=== PATIENT | female | born 1940 | race Caucasian/White ===

== ENCOUNTER 2018-05-30 13:56 | Emergency (ER) | payer MEDICARE, OTHER ==
[2018-05-30 14:40] VITALS: O2SAT 98
[2018-05-30] MEDS ORDERED: Adacel Vial IM ONE ×2 (14:55→15:26)
--- NOTE | 2018-05-30 14:55 | ERPHSYRPT ---
- History of Present Illness Time Seen by Provider: 05/30/18 14:50 Source: patient, family Exam Limitations: no limitations Patient Subjective Stated Complaint: missed a tep and fell at the library. hit left side of head. Lac to head. no LOC Triage Nursing Assessment: alert and oriented after missing a step and hitting left siide of head. Lac approx 3 CM to left temporal. no LOC. neuro intact. ROMARIO no active bleeding Physician History: The patient is a 78-year-old female with her who comes in complaining that she missed a step while at a local library, causing her to hit the left side of her head on the door jam. This caused a laceration to her left forehead and bruising to her left cheek. She does not think she lost consciousness. She is unsure of her last tetanus vaccination but it may have been within the last 10 years. She denies neck pain. She denies visual problems. She denies numbness or tingling. Her past medical history significant for A. fib. She is on a blood thinner. Occurred: just prior to arrival Reason for Fall: tripped, fell from height Injuries/Pain Location: head, face Loss of Consciousness: no loss of consciousness Quality: aching, sharpness Severity of Pain-Max: moderate Severity of Pain-Current: moderate Modifying Factors: Improves With: nothing Associated Symptoms (Fall): denies symptoms, No dizziness, No extremity injury, No neck pain Allergies/Adverse Reactions: No Known Drug Allergies Allergy (Unverified 12/15/14 10:31) Home Medications: Sotalol HCl 80 mg [Betapace 80 MG] 80 mg PO BID 08/11/13 [History] Amlodipine Besylate 5 mg [Norvasc 5 mg] 5 mg PO DAILY 12/15/14 [History] Apixaban [Eliquis 5 mg Tablet] 5 mg PO BID 12/15/14 [History] Hx Tetanus, Diphtheria Vaccination/Date Given: No Hx Influenza Vaccination/Date Given: No Hx Pneumococcal Vaccination/Date Given: No Immunizations Up to Date: Yes - Review of Systems Constitutional: No Fever, No Chills Eyes: No Symptoms Ears, Nose, & Throat: No Symptoms Respiratory: No Cough, No Dyspnea Cardiac: No Chest Pain, No Edema, No Syncope Abdominal/Gastrointestinal: No Abdominal Pain, No Nausea, No Vomiting, No Diarrhea Genitourinary Symptoms: No Dysuria Musculoskeletal: Fall, Injury Skin: Other (laceration) Neurological: No Dizziness, No Focal Weakness, No Sensory Changes Psychological: No Symptoms Endocrine: No Symptoms Hematologic/Lymphatic: No Symptoms - Past Medical History Pertinent Past Medical History: Yes Neurological History: Peripheral Neuropathy ENT History: Cataracts Cardiac History: Arrhythmia, Hypertension Respiratory History: No Pertinent History Endocrine Medical History: No Pertinent History Musculoskeletal History: Osteoarthritis GI Medical History: Polyps History: No Pertinent History Psycho-Social History: No Pertinent History Female Reproductive Disorders: No Pertinent History Other Medical History: BILATERAL FOOT NUMBNESS, CARDIOVERSION X 3 - Past Surgical History Past Surgical History: Yes Neuro Surgical History: No Pertinent History Cardiac: No Pertinent History Respiratory: No Pertinent History Gastrointestinal: No Pertinent History Genitourinary: No Pertinent History Musculoskeletal: Orthopedic Surgery Female Surgical History: No Pertinent History Other Surgical History: BREAST BIOPSY; KNEE SCOPE; T&A - Social History Smoking Status: Never smoker Exposure to second hand smoke: No Drug Use: none Patient Lives Alone: No - Female History Hx Now: No - Nursing Vital Signs Nursing Vital Signs: Initial Vital Signs Temperature 98 F 05/30/18 14:23 Pulse Rate 99 H 05/30/18 14:23 Respiratory Rate 18 05/30/18 14:23 Blood Pressure 150/90 05/30/18 14:23 O2 Sat by Pulse Oximetry 98 05/30/18 14:23 Pain Scale Pain Intensity 4 - Cuco Coma Score Best Eye Response (Cuco): (4) open spontaneously Best Verbal Response (Tonica): (5) oriented Best Motor Response (Cuco): (6) obeys commands Tonica Total: 15 - Physical Exam General Appearance: no apparent distress, alert Head Injury: lacerations (3 x 1 cm contused laceration to left forehead; 0.5 cm lac to inferior left ear lobe), No contusions (left cheek) Eye Exam: PERRL/EOMI ENT Exam: airway nml Neck Exam: normal inspection, No tenderness Respiratory/Chest Exam: normal breath sounds, No chest tenderness, No respiratory distress Cardiovascular Exam: normal heart sounds, irregular Gastrointestinal Exam: soft, No tenderness, No distention, No guarding, No ecchymosis Rectal Exam: not done Back Exam: normal inspection, No vertebral tenderness Extremity Exam: normal inspection, normal range of motion, pelvis stable, No deformities Neurologic Exam: alert, oriented x 3, cooperative, sensation nml, No motor deficits Skin Exam: ecchymosis (leck cheek) SpO2 Interpretation: normal SpO2: 98 O2 Delivery: Room Air Procedures - Laceration/Wound Repair Left Upper Anterior Head Wound Location: Left, forehead Wound Length (cm): 3 Wound's Depth, Shape: linear, contused tissue Wound Explored: clean Irrigated: Yes Hibiclens Prep: Yes Anesthesia: 1% Lidocaine Volume Anesthetic (ccs): 10 Wound Repaired With: sutures Suture Size/Type: 4-0, ethilon Number of Sutures: 5 Layer Closure?: No Sterile Dressing Applied?: Yes Left Lower Ear Wound Location: Left, head (ear) Wound Length (cm): 0.5 Wound's Depth, Shape: superficial, linear Wound Explored: clean Irrigated: No Hibiclens Prep: Yes Wound Repaired With: Dermabond - CT Exams Head CT Interpretation: Negative, Tele-radiologist Report (per Dr Garay), No/ Intracranial Hemorrhag Maxillofacial Bones CT Interpretation: Negative, Tele-radiologist Report (per Dr Garay), No Fracture Cervical Spine CT Interpretation: Negative, Tele-radiologist Report (per Dr Garay), No Fracture, No Subluxation, Other (stable right parapharyngeal soft tissue mass (benign)) Ordered Tests: Active Orders 24 hr Category Date Time Status Wound Care STAT Care 05/30/18 15:36 Active CERVICAL SPINE WO CONTRAST [CT] Stat Exams 05/30/18 14:56 Completed FACIAL BONES WO CONTRAST [CT] Stat Exams 05/30/18 14:56 Completed HEAD WITHOUT CONTRAST [CT] Stat Exams 05/30/18 14:56 Completed Medication Summary Discontinued Medications Generic Name Dose Route Start Last Admin Trade Name Freq PRN Reason Stop Dose Admin Diphtheria/Tetanus/Acell Pertussis 0.5 ml 05/30/18 14:55 05/30/18 15:27 Adacel Vial IM 05/30/18 14:56 0.5 ml .ONCE ONE Administration Diphtheria/Tetanus/Acell Pertussis Confirm 05/30/18 15:26 Adacel Vial Administered 05/30/18 15:27 Dose 0.5 ml IM .STK-MED ONE Lidocaine HCl 10 ml 05/30/18 15:36 05/30/18 15:48 Xylocaine 1% Hcl 20 Ml Mdv IJ 05/30/18 15:37 10 ml STAT ONE Administration Lidocaine HCl Confirm 05/30/18 15:37 Xylocaine 1% Hcl 20 Ml Mdv Administered 05/30/18 15:38 Dose 10 ml .ROUTE .STK-MED ONE - Progress Progress: improved Progress Note: 05/30/18 14:57 pt declines pain meds. Counseled pt/family regarding: diagnosis, need for follow-up, rad results - Departure Time of Disposition: 16:19 Departure Disposition: Home Clinical Impression: Forehead laceration, Laceration of left earlobe Condition: Stable Critical Care Time: No Additional Instructions: You struck your head during a fall today. You had a laceration to your left forehead closed with 5 sutures. You had a small laceration to your left earlobe closed with Dermabond glue. Take Tylenol 1000 mg every 6-8 hours as needed for discomfort. You may also use ice applied to any bruised area for comfort. Have the sutures removed in about 12 days by your primary medical doctor. Take Augmentin 875 one tablet 2 times a day for 10 days. Prescriptions: Amoxicillin/Potassium Clav [Augmentin 875-125 Tablet] 1 each PO BID #20 tablet
--- NOTE | 2018-05-30 15:21 | XRAY ---
Indication: Pain following fall. Multiple contiguous axial images obtained through the head without contrast. Comparison: December 15, 2014. Again normal appearing brain parenchyma, ventricles, and bony calvarium. Visualized paranasal sinuses and mastoid air cells are clear. Impression: Normal CT head without contrast exam. CT DI 48.76
--- NOTE | 2018-05-30 15:25 | XRAY ---
Indication: Pain following fall. Multiple contiguous axial images obtained through the facial bones. Sagittal and coronal reformatted images obtained. Comparison: December 15, 2014. Again there are bilateral dental amalgams producing beam artifact limiting these levels. No acute fracture or suspicious bony lesions. Orbits including roof, yuan, and floors are intact. Stable inferior left maxilla sinus polyp/retention cyst.. Remaining paranasal sinuses and nasal passages are clear. Stable mild nasal septal deviation to the left. Remaining visualized noncontrasted soft tissues unremarkable. CT head and CT cervical spine reported separately. Impression: 1. Again negative acute facial bone fracture. 2. Incidental left maxillary sinus polyp/retention cyst and nasal septal deviation.
[2018-05-30] MEDS ORDERED: XYLOCAINE 1% HCL 20 ML MDV IJ ONE (15:36)
--- NOTE | 2018-05-30 15:36 | XRAY ---
Indication: Pain following fall. Multiple contiguous axial images obtained through the cervical spine. Sagittal and coronal reformatted images obtained. Comparison: December 15, 2014. Axial images again negative for acute fracture, suspicious bony lesions, or spinal canal stenosis. Stable mild atlantoaxial degenerative arthropathy and multilevel degenerative facet hypertrophy. Sagittal and coronal reformatted images demonstrates normal alignment with stable minimal C6-C7 disc space narrowing. No acute compression fracture, subluxation, or jumped facet. Normal appearing craniocervical junction. Visualized noncontrasted soft tissues again demonstrates mild carotid calcifications, left greater than right. Also stable 2 x 3 x 3.8 cm well-circumscribed soft tissue mass in the right parapharyngeal space. Lung apices clear. CT head and CT facial bones reported separately Impression: 1. Again negative for acute fracture/subluxation. 2. Stable multilevel degenerative changes. 3. 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 CT DI 36.30
[2018-05-30] MEDS ORDERED: XYLOCAINE 1% HCL 20 ML MDV ONE (15:37)
[2018-05-30 16:10] VITALS: BP 156/105; PULSE 114
[2018-05-30] MEDS ORDERED: BACIGUENT PACKET ONE (16:30)
[2018-05-30] MEDS ORDERED: BACIGUENT PACKET TP ONE (16:43)
== END 2018-05-30 16:38 | disposition home or self-care (01) ==
LOC: ED 13:56
DX: S01.81XA Laceration without foreign body of other part of head, initial encounter (principal); S01.312A Laceration without foreign body of left ear, initial encounter; S00.83XA Contusion of other part of head, initial encounter; W17.89XA Other fall from one level to another, initial encounter; Y93.01 Activity, walking, marching and hiking; Y92.241 Library as the place of occurrence of the external cause; I48.91 Unspecified atrial fibrillation; I10 Essential (primary) hypertension; G62.9 Polyneuropathy, unspecified; M19.90 Unspecified osteoarthritis, unspecified site; Z79.01 Long term (current) use of anticoagulants; Z79.899 Other long term (current) drug therapy; Z86.010 Personal history of colon polyps; A35 Other tetanus; Z23 Encounter for immunization
CPT/HCPCS: 12011; 12013; 70450; 70486; 72125; 90471; 90715; 99284; A9270-GY

== ENCOUNTER 2018-06-16 11:43 | Emergency (ER) | payer MEDICARE, OTHER ==
--- NOTE | 2018-06-16 12:30 | ERPHSYRPT ---
- History of Present Illness Time Seen by Provider: 06/16/18 12:29 Source: patient Exam Limitations: no limitations Patient Subjective Stated Complaint: states fell approx two and a half weeks ago and had tenderness to right knee. states knee is getting better but yesterday noted that right ankle was swelling and was tender. Triage Nursing Assessment: to room per w/c. skin w/d, color normal, resp nonlabored. right ankel slightly swollen and red. tender to touch. good pedal pulse. Physician History: states fell approx two and a half weeks ago and had tenderness to right knee. states knee is getting better but yesterday noted that right ankle was swelling and was tender. Method of Injury: fell Occurred: days ago Severity of Pain-Max: mild Severity of Pain-Current: mild Modifying Factors: Improves With: nothing Associated Symptoms: none Allergies/Adverse Reactions: No Known Drug Allergies Allergy (Unverified 12/15/14 10:31) Home Medications: Sotalol HCl 80 mg [Betapace 80 MG] 120 mg PO BID 08/11/13 [History] Amlodipine Besylate 5 mg [Norvasc 5 mg] 2.5 mg PO DAILY 12/15/14 [History] Apixaban [Eliquis 5 mg Tablet] 5 mg PO BID 12/15/14 [History] Hx Tetanus, Diphtheria Vaccination/Date Given: No Hx Influenza Vaccination/Date Given: No Hx Pneumococcal Vaccination/Date Given: No - Review of Systems Constitutional: No Fever, No Chills Eyes: No Symptoms Ears, Nose, & Throat: No Symptoms Respiratory: No Cough, No Dyspnea Cardiac: No Chest Pain, No Edema, No Syncope Abdominal/Gastrointestinal: No Abdominal Pain, No Nausea, No Vomiting, No Diarrhea Genitourinary Symptoms: No Dysuria Musculoskeletal: No Back Pain, No Neck Pain Skin: No Rash Neurological: No Dizziness, No Focal Weakness, No Sensory Changes Psychological: No Symptoms Endocrine: No Symptoms Hematologic/Lymphatic: Easy Bruising All Other Systems: Reviewed and Negative - Past Medical History Pertinent Past Medical History: Yes Neurological History: Peripheral Neuropathy ENT History: Cataracts Cardiac History: Arrhythmia, Hypertension Respiratory History: No Pertinent History Endocrine Medical History: No Pertinent History Musculoskeletal History: Osteoarthritis GI Medical History: Polyps History: No Pertinent History Psycho-Social History: No Pertinent History Female Reproductive Disorders: No Pertinent History Other Medical History: BILATERAL FOOT NUMBNESS, CARDIOVERSION X 3 - Past Surgical History Past Surgical History: Yes Neuro Surgical History: No Pertinent History Cardiac: No Pertinent History Respiratory: No Pertinent History Gastrointestinal: No Pertinent History Genitourinary: No Pertinent History Musculoskeletal: Orthopedic Surgery Female Surgical History: No Pertinent History Other Surgical History: BREAST BIOPSY; KNEE SCOPE; T&A - Social History Smoking Status: Never smoker Exposure to second hand smoke: No Drug Use: none Patient Lives Alone: No - Female History Hx Now: No - Nursing Vital Signs Nursing Vital Signs: Initial Vital Signs Temperature 97.6 F 06/16/18 11:46 Pulse Rate 70 06/16/18 11:46 Respiratory Rate 16 06/16/18 11:46 Blood Pressure 150/82 06/16/18 11:46 O2 Sat by Pulse Oximetry 96 06/16/18 11:46 Pain Scale Pain Intensity 4 - Physical Exam General Appearance: alert Eyes, Ears, Nose, Throat Exam: moist mucous membranes Neck Exam: non-tender, supple Cardiovascular/Respiratory Exam: chest non-tender, normal breath sounds, no respiratory distress Gastrointestinal/Abdominal Exam: non-tender, guarding Back Exam: normal inspection, No vertebral tenderness Neuro/Tendon Exam: normal sensation, normal motor functions Mental Status Exam: alert, oriented x 3, cooperative Skin Exam: normal color, warm, dry - Course Nursing assessment & vital signs reviewed: Yes EKG Interpreted by Me: Sinus Rhythm Ordered Tests: Active Orders 24 hr Category Date Time Status CBC W DIFF Stat Lab 06/16/18 12:30 Completed CMP Stat Lab 06/16/18 12:30 Completed D-DIMER QUANTITATION Stat Lab 06/16/18 12:30 Completed Erythrocyte Sedimentation Rate Stat Lab 06/16/18 12:30 Completed NT PRO BNP Stat Lab 06/16/18 12:30 Completed PROTIME WITH INR Stat Lab 06/16/18 12:30 Completed Lab/Rad Data: Laboratory Result Diagrams 06/16/18 12:30 06/16/18 12:30 Laboratory Results 06/16/18 06/16/18 06/16/18 Range/Units 12:30 12:30 12:30 WBC 8.0 (4.0-10.5) K/mm3 RBC 4.25 (4.1-5.4) M/mm3 Hgb 13.0 (12.0-16.0) gm/dl Hct 40.6 (35-47) % MCV 95.5 (78-100) fl MCH 30.6 (26-32) pg MCHC 32.0 (32-36) g/dl RDW 14.1 H (11.5-14.0) % Plt Count 167 (150-450) K/mm3 MPV 10.5 H (6-9.5) fl Gran % 71.9 H (36.0-66.0) % Eos # (Auto) 0.20 (0-0.5) Absolute Lymphs (auto) 1.25 (1.0-4.6) Absolute Monos (auto) 0.78 (0.0-1.3) Lymphocytes % 15.5 L (24.0-44.0) % Monocytes % 9.7 (0.0-12.0) % Eosinophils % 2.5 (0.00-5.0) % Basophils % 0.4 (0.0-0.4) % Absolute Granulocytes 5.78 (1.4-6.9) Basophils # 0.03 (0-0.4) ESR 22 H (0-20) mm/hr PT 16.5 H (9.95-12.35) SECONDS INR 1.41 (0.8-3.0) D-Dimer 481 (215-500) ng/mL Sodium 142 (137-145) mmol/L Potassium 4.0 (3.5-5.1) mmol/L Chloride 108 H (98-107) mmol/L Carbon Dioxide 25 (22-30) mmol/L Anion Gap 11.6 (5-15) MEQ/L BUN 19 H (7-17) mg/dL Creatinine 0.75 (0.52-1.04) mg/dL Estimated GFR > 60.0 ML/MIN Glucose 94 (74-106) mg/dL Calcium 9.9 (8.4-10.2) mg/dL Total Bilirubin 0.40 (0.2-1.3) mg/dL AST 25 (14-36) U/L ALT 19 (0-35) U/L Alkaline Phosphatase 83 (38-126) U/L NT-Pro-B Natriuret Pep 418 (0-1800) pg/mL Serum Total Protein 7.1 (6.3-8.2) g/dL Albumin 4.2 (3.5-5.0) g/dL - Progress Progress: unchanged Counseled pt/family regarding: lab results, diagnosis, need for follow-up - Departure Time of Disposition: 13:07 Departure Disposition: Home Clinical Impression: Pedal edema, Paroxysmal atrial fibrillation Condition: Stable Critical Care Time: Yes Critical Care Time(excluding separately billable procedures): 30-74 minutes Referrals: SETH SCHULTZ [ACTIVE STAFF] - Additional Instructions: Please follow the instructions given to you. Please take your medication as prescribed if given. If symptoms recur or get worse, come back to the emergency room if you cannot reach your primary care physician, or call your primary care physician for an appointment. Again if your symptoms get worse, come back to the emergency room. Thanks for visiting emergency room, and let us take care of you.
[2018-06-16 12:43] VITALS: BP 105/83; PULSE 70; O2SAT 97
[2018-06-16 12:51] LABS: BASOPHIL % 0.4 % (0.0-0.4); Basophil (Absolute #) 0.03 (0-0.4); Eosinophil % 2.5 % (0.00-5.0); Granulocyte Absolute (ANC) 5.78 (1.4-6.9); Granulocytes % 71.9 % (36.0-66.0); Hematocrit 40.6 % (35-47); Lymphocyte (Absolute #) 1.25 (1.0-4.6); Lymphocytes % 15.5 % (24.0-44.0); Mean Cell Volume 95.5 fl (78-100); Mean Corpuscular Hemoglobin 30.6 pg (26-32); Mean Platelet Volume 10.5 fl (6-9.5); Monocyte (Absolute #) 0.78 (0.0-1.3); Monocytes % 9.7 % (0.0-12.0); Platelet Count 167 K/mm3 (150-450); Red Blood Count 4.25 M/mm3 (4.1-5.4); Red Cell Distribution Width 14.1 % (11.5-14.0)
[2018-06-16 12:53] LABS: INR 1.41 (0.8-3.0); PROTIME 16.5 SECONDS (9.95-12.35)
[2018-06-16 13:07] LABS: ALBUMIN 4.2 g/dL (3.5-5.0); ALKALINE PHOSPHATASE 83 U/L (38-126); ANION GAP 11.6 MEQ/L (5-15); BLOOD UREA NITROGEN 19 mg/dL (7-17); CHLORIDE 108 mmol/L (98-107); Calcium 9.9 mg/dL (8.4-10.2); Carbon Dioxide 25 mmol/L (22-30); Creatinine 1 0.75 mg/dL (0.52-1.04); Glucose 94 mg/dL (74-106); NT PRO BNP 418 pg/mL (0-1800); SGOT/AST 25 U/L (14-36); SGPT/ALT 19 U/L (0-35); SODIUM 142 mmol/L (137-145); Total Protein 7.1 g/dL (6.3-8.2)
[2018-06-16 13:09] LABS: Erythrocyte Sedimentation Rate 22 mm/hr (0-20)
== END 2018-06-16 13:44 | disposition home or self-care (01) ==
LOC: ED 11:43
DX: R60.9 Edema, unspecified (principal); I48.0 Paroxysmal atrial fibrillation; I10 Essential (primary) hypertension; G62.9 Polyneuropathy, unspecified; M19.90 Unspecified osteoarthritis, unspecified site; Z86.010 Personal history of colon polyps
CPT/HCPCS: 36415; 80053; 83880; 85025; 85379; 85610; 85652; 99283

== ENCOUNTER 2019-12-18 15:26 | Emergency (ER) | payer MEDICARE, OTHER ==
[2019-12-18] MEDS ORDERED: XYLOCAINE 1% HCL 20 ML MDV IJ ONE (15:34)
[2019-12-18] MEDS ORDERED: BACIGUENT PACKET TP ONE (15:34)
[2019-12-18] MEDS ORDERED: XYLOCAINE 1% HCL 20 ML MDV ONE (15:35)
[2019-12-18] MEDS ORDERED: BACIGUENT PACKET ONE (15:35)
--- NOTE | 2019-12-18 16:10 | ERPHSYRPT ---
- History of Present Illness Time Seen by Provider: 12/18/19 16:06 Source: patient Exam Limitations: no limitations Patient Subjective Stated Complaint: laceration Triage Nursing Assessment: pt to ED c/o lac to L forehead after fall at home. pt does take blood thinners, did not lose consciousness and is A&Ox4 currently. 2.5 cm lac noted to L eyebrow and bleeding is controlled on arrival by washcloth from home. pt states 1-2/10 pain. Physician History: Is a 79-year-old female who is on Eliquis for atrial fib who suffered a fall at home striking her left eyebrow there is 2.75 cm in length superficial but bleeding because of her Eliquis. Occurred: just prior to arrival Severity: mild Head Injury Location: frontal Method of Injury: fell Loss of Consciousness: no loss of consciousness Associated Symptoms: denies symptoms Allergies/Adverse Reactions: No Known Drug Allergies Allergy (Unverified 12/15/14 10:31) Home Medications: Apixaban [Eliquis 5 mg Tablet] 5 mg PO BID 12/15/14 [History] Flecainide Acetate 100 mg PO BID 12/18/19 [History] Metoprolol Tartrate 50 mg [Lopressor 50 MG] 50 mg PO BID 12/18/19 [History] lisinopriL [Zestril] 2.5 mg PO DAILY 12/18/19 [History] Hx Tetanus, Diphtheria Vaccination/Date Given: Yes Hx Influenza Vaccination/Date Given: No Hx Pneumococcal Vaccination/Date Given: No Immunizations Up to Date: Yes Travel Risk - International Travel Have you traveled outside of the country in past 3 weeks: No - Coronavirus Screening Are you exhibiting any of the following symptoms?: No Close contact with a COVID-19 positive Pt in past 14-21 Days: No - Review of Systems Constitutional: No Fever, No Chills Eyes: No Symptoms Ears, Nose, & Throat: No Symptoms Respiratory: No Cough, No Dyspnea Cardiac: No Chest Pain, No Edema, No Syncope Abdominal/Gastrointestinal: No Abdominal Pain, No Nausea, No Vomiting, No Diarrhea Genitourinary Symptoms: No Dysuria Musculoskeletal: No Back Pain, No Neck Pain Skin: No Rash Neurological: No Dizziness, No Focal Weakness, No Sensory Changes Psychological: No Symptoms Endocrine: No Symptoms All Other Systems: Reviewed and Negative - Past Medical History Pertinent Past Medical History: Yes Neurological History: Peripheral Neuropathy ENT History: Cataracts Cardiac History: Arrhythmia, Hypertension Respiratory History: No Pertinent History Endocrine Medical History: No Pertinent History Musculoskeletal History: Osteoarthritis GI Medical History: Polyps History: No Pertinent History Psycho-Social History: No Pertinent History Female Reproductive Disorders: No Pertinent History Other Medical History: afib, BILATERAL FOOT NUMBNESS, CARDIOVERSION X 3 - Past Surgical History Past Surgical History: Yes Neuro Surgical History: No Pertinent History Cardiac: No Pertinent History Respiratory: No Pertinent History Gastrointestinal: No Pertinent History Genitourinary: No Pertinent History Musculoskeletal: Orthopedic Surgery Female Surgical History: No Pertinent History Other Surgical History: BREAST BIOPSY; KNEE SCOPE; T&A, bunion sx - Social History Smoking Status: Never smoker Exposure to second hand smoke: No Drug Use: none Patient Lives Alone: No - Female History Hx Now: No - Nursing Vital Signs Nursing Vital Signs: Pain Scale Pain Intensity 2 - Catlett Coma Score Best Eye Response (Catlett): (4) open spontaneously Best Verbal Response (Catlett): (5) oriented Best Motor Response (Catlett): (6) obeys commands Cuco Total: 15 - Physical Exam General Appearance: no apparent distress, alert Eye Exam: left eye: other (There is a 2.75 laceration to the left eyebrow area), bilateral eye: PERRL, EOMI ENT Exam: airway nml Cardiovascular/Respiratory Exam: chest non-tender, normal breath sounds, regular rate/rhythm Gastrointestinal/Abdominal Exam: soft, non tender, no distention Back Exam: normal inspection, No vertebral tenderness Extremity Exam: non-tender, normal range of motion, normal inspection Mental Status Exam: alert, oriented x 3, cooperative Motor/Sensory Exam: no motor deficit, no sensory deficit, CN II-XII intact Skin Exam: normal color, warm, dry, No rash Procedures - Laceration/Wound Repair Anterior Face Wound Location: forehead Wound Length (cm): 2.75 Wound's Depth, Shape: superficial, linear Wound Explored: clean Irrigated: Yes Hibiclens Prep: Yes Anesthesia: 1% Lidocaine Volume Anesthetic (ccs): 4 Wound Debrided: minimal Wound Repaired With: sutures Suture Size/Type: 4-0, prolene Number of Sutures: 7 Layer Closure?: No Sterile Dressing Applied?: Yes Splint Applied?: No Sling Applied?: No Ordered Tests: Active Orders 24 hr Category Date Time Status Wound Care STAT Care 12/18/19 15:34 Active Medication Summary Discontinued Medications Generic Name Dose Route Start Last Admin Trade Name Phil PRN Reason Stop Dose Admin Bacitracin Zinc 0.9 gm 12/18/19 15:34 12/18/19 15:55 Baciguent Packet TP 12/18/19 15:35 0.9 gm STAT ONE Administration Bacitracin Zinc Confirm 12/18/19 15:35 Baciguent Packet Administered 12/18/19 15:36 Dose 1 gm .ROUTE .STK-MED ONE Lidocaine HCl 5 ml 12/18/19 15:34 12/18/19 15:49 Xylocaine 1% Hcl 20 Ml Mdv IJ 12/18/19 15:35 5 ml STAT ONE Administration Lidocaine HCl Confirm 12/18/19 15:35 Xylocaine 1% Hcl 20 Ml Mdv Administered 12/18/19 15:36 Dose 5 ml .ROUTE .STK-MED ONE - Progress Progress: improved - Departure Departure Disposition: Home Clinical Impression: Laceration of eyebrow, left Condition: Stable Critical Care Time: No Referrals: GRETCHEN LASSITER [Primary Care Provider] - Instructions: Wound Care (DC), Laceration Repair With Stitches (DC)
[2019-12-18 16:15] VITALS: BP 164/80; PULSE 84; O2SAT 97
== END 2019-12-18 16:19 | disposition home or self-care (01) ==
LOC: ED 15:26
DX: S01.112A Laceration without foreign body of left eyelid and periocular area, initial encounter (principal); W19.XXXA Unspecified fall, initial encounter; I48.91 Unspecified atrial fibrillation; Z79.01 Long term (current) use of anticoagulants; Z79.899 Other long term (current) drug therapy; I10 Essential (primary) hypertension; G62.9 Polyneuropathy, unspecified; Z86.010 Personal history of colon polyps; M19.90 Unspecified osteoarthritis, unspecified site
CPT/HCPCS: 12013; 96372; 99284; A9270-GY

== ENCOUNTER 2024-05-03 15:21 | Emergency (ER) | payer MEDICARE | END 2024-05-03 18:52 | disposition left against medical advice (07) | LOC: ED 15:21 | DX: Z53.21 Procedure and treatment not carried out due to patient leaving prior to being seen by health care provider (principal) ==